=== PATIENT | female | born 1950 | race Caucasian/White ===

== ENCOUNTER 2020-11-18 16:35 | Inpatient (IN) | payer MEDICARE, OTHER ==
[~2020-11-18] VITALS: Ht 175.3 cm; Wt 72.6 kg
--- NOTE | 2020-11-18 16:40 | NUR ---
Dr Puente at the bedside for MSE. Pt's stated staying w/ Pt during ER visit.
[2020-11-18 16:52] LABS: *BILIRUBIN,URIN NEGATIVE (NEGATIVE); *BLOOD, URINE NEGATIVE (NEGATIVE); *CLARITY,URINE CLEAR (CLEAR); *COLOR,URINE YELLOW (YELLOW); *KETONES,URINE NEGATIVE (NEGATIVE); *UROBILINOGEN,URINE 0.2 E.U./dl (NORMAL); LEUKOCYTE ESTERASE ,URINE NEGATIVE (NEGATIVE); NITRITE, URINE NEGATIVE (NEGATIVE); UGLUCOSE NEGATIVE (NEGATIVE)
[2020-11-18 17:03] LABS: *AMPHETAMINE, URINE NEGATIVE (NEGATIVE); *CANNABINOID, URINE NEGATIVE (NEGATIVE); *COCCAINE, URINE NEGATIVE (NEGATIVE); *OPIATE, URINE NEGATIVE (NEGATIVE); *PHENCYCLIDINE SCREEN,URINE NEGATIVE (NEGATIVE)
[2020-11-18 17:04] LABS: HEMATOCRIT 45.8 % (31.2-41.9); MEAN CORPUSCULAR HEMOGLOBIN 31.2 uug (24.7-32.8); MEAN CORPUSCULAR VOLUME 90.1 fL (75.5-95.3); PLATELET COUNT (AUTO) 379 K/uL (179-408)
[2020-11-18 17:10] LABS: CARBON DIOXIDE 24 mmol/L (21-32); CHLORIDE 102 mmol/L (98-107); CREATININE 0.7 mg/dL (0.6-1.3); GLUCOSE 141 mg/dL (74-106); UREA NITROGEN, BLOOD 15 mg/dL (7-18)
[2020-11-18] MEDS ORDERED: VITA1CAP PO (17:10)
[2020-11-18] MEDS ORDERED: MONT10TA22 PO (17:10)
[2020-11-18] MEDS ORDERED: MULT-594 PO (17:10)
[2020-11-18] MEDS ORDERED: LEVO75TA7 PO (17:10)
[2020-11-18] MEDS ORDERED: CARV12.52 PO (17:10)
[2020-11-18] MEDS ORDERED: ALPR0.5T PO ×2 (17:10→17:11)
[2020-11-18] MEDS ORDERED: METF-440 PO (17:10)
--- NOTE | 2020-11-18 17:10 | NUR ---
Spoke to Pt's DIGITAL PROJECT COORDINATOR(Sergio) per Pt's request. Per Sergio, she admitted to have suecidal thoughts.
--- NOTE | 2020-11-18 17:10 | NUR ---
Relay pt's suecidal info to Dr Puente.
[2020-11-18] MEDS ORDERED: VITA400T9 PO (17:11)
[2020-11-18] MEDS ORDERED: MELA10CA PO (17:11)
[2020-11-18] MEDS ORDERED: ASCO500C18 PO (17:11)
[2020-11-18] MEDS ORDERED: PRAV20TA4 PO (17:11)
[2020-11-18] MEDS ORDERED: ESCI5TAB PO (17:11)
[2020-11-18] MEDS ORDERED: CALC-953 PO (17:11)
[2020-11-18] MEDS ORDERED: LETR2.5T PO (17:11)
[2020-11-18] MEDS ORDERED: ACET-2605 PO (17:11)
[2020-11-18] MEDS ORDERED: VERA240C2 PO (17:11)
[2020-11-18] MEDS ORDERED: LAMO25TA10 PO (17:11)
[2020-11-18 17:12] LABS: ETHANOL < 3 MG/DL (0-0)
[2020-11-18 17:16] LABS: ALANINE AMINOTRANSFERASE 27 U/L (14-59); ALKALINE PHOSPHATASE 52 U/L (50-136); ASPARTATE AMINOTRANSFERASE 14 U/L (15-37); BILIRUBIN,DIRECT 0.1 mg/dL (0.0-0.2); BILIRUBIN,TOTAL 0.5 mg/dL (0.2-1.0); TOTAL PROTEIN, SERUM 7.3 g/dL (6.4-8.2)
[2020-11-18 17:18] LABS: ACETAMINOPHEN < 2.0 ug/mL (10-30)
--- NOTE | 2020-11-18 17:20 | NUR ---
pt is medically cleared by Dr Puente. Placed a call to Shante Kingsley RN, PET, ETA 1 hour.
--- NOTE | 2020-11-18 18:01 | NUR ---
Pt is resting in bed, at the bedside.
--- NOTE | 2020-11-18 18:10 | NUR ---
Dinner tray provided, pt ate 100% of tray. in the room w/ Pt.
--- NOTE | 2020-11-18 21:02 | NUR ---
TRANSFERED TO [facility] VIA [facility].
[2020-11-18] MEDS ORDERED: MAGNESIUM HYDROXIDE 30 ML LIQUID UDC PO PRN (21:30)
[2020-11-18] MEDS ORDERED: MAG HYDROX/AL HYDROX/SIMETH 30 ML LIQUID UDC PO PRN (21:30)
[2020-11-18] MEDS ORDERED: LORAZEPAM 1 MG TABLET PO PRN (21:30)
[2020-11-18] MEDS ORDERED: BLOOD SUGAR DIAGNOSTIC 1 EACH STRIP VI ONE (21:30)
[2020-11-18] MEDS ORDERED: TEMAZEPAM 7.5 MG CAPSULE PO PRN (21:30)
[2020-11-18 22:18] VITALS: BP 150/99
[2020-11-19 07:30] VITALS: BP 160/63
[2020-11-19 07:54] LABS: BILIRUBIN,TOTAL 0.6 mg/dL (0.2-1.0); CREATININE 0.7 mg/dL (0.6-1.3); POTASSIUM 3.6 mmol/L (3.5-5.1); TOTAL PROTEIN, SERUM 6.6 g/dL (6.4-8.2)
--- NOTE | 2020-11-19 12:24 | NUR ---
LUZ Initial Discharge Plan: Patient resides at [address] [place] [address] with her James Tyaskin ([phone]). Patient will return home upon discharge. LUZ contacted patients [place] to discuss treatment and discharge plan and left a voicemail. LUZ will work with patient, family and MD to form a safe and proper discharge.
--- NOTE | 2020-11-19 12:24 | NUR ---
LUZ Family Contact: LUZ contacted patients [place] to discuss treatment and discharge plan and left a voicemail.
--- NOTE | 2020-11-19 12:29 | NUR ---
FIREARMS REPORT: Goldsmith Apprentice completed and submitted a [employer] firearms report for 5150 grave disability certification. A copy of report has been placed in patient chart.
--- NOTE | 2020-11-19 13:05 | NUR ---
LUZ Family Contact: LUZ received a call from patient's daughter Niki ([phone]) who stated she is the secondary DPOA and patient's [place] ([phone]) is the primary DPOA. Niki will send this SW documents. LUZ discussed treatment and discharge plan. Patient will return home once stable and family will pick patient up.
[2020-11-19] MEDS ORDERED: CARVEDILOL 12.5 MG TABLET PO ONE (13:15)
[2020-11-19] MEDS ORDERED: METFORMIN HCL 850 MG TABLET PO ONE (13:15)
[2020-11-19] MEDS ORDERED: METFORMIN HCL 500 MG TABLET PO ONE (13:15)
[2020-11-19] MEDS: ESCITALOPRAM OXALATE 10 MG TABLET PO SCH (13:19)
[2020-11-19] MEDS: LAMOTRIGINE 25 MG TABLET PO SCH (13:25)
--- NOTE | 2020-11-19 15:28 | NUR ---
UR NOTE: Per SEBASTIAN intake: Auth# [id number] obtained from [facility] [employer] PPO [phone] 3 days approved from 11/18/2020 to 11/20/2020 with review due on . No patient case coordinator assigned at this time. Once assigned [facility] will reach out to [place] Java Web Application Developer. Michael Godfrey can use same number to f/up [phone] Dept.
[2020-11-19 16:00] VITALS: BP 172/75
[2020-11-19] MEDS: METFORMIN HCL 500 MG TABLET PO SCH (17:31)
[2020-11-19] MEDS: CARVEDILOL 12.5 MG TABLET PO SCH (17:32)
[2020-11-19 19:03] VITALS: BP 152/62
[2020-11-19] MEDS: MIRTAZAPINE 15 MG TABLET PO SCH (20:30)
[2020-11-19] MEDS: ATORVASTATIN 10 MG TABLET PO SCH (20:30)
[2020-11-19] MEDS ORDERED: ACETAMINOPHEN ES 500 MG TABLET PO SCH (21:00)
[2020-11-19 21:05] VITALS: BP 161/50
[2020-11-19 21:47] VITALS: BP 150/86
[2020-11-19] MEDS: ACETAMINOPHEN 325 MG TABLET PO PRN (22:19)
[2020-11-20] MEDS: ALPRAZOLAM 0.5 MG TABLET PO PRN ×2 (00:05→22:52)
[2020-11-20] MEDS: LEVOTHYROXINE SODIUM 75 MCG TABLET PO SCH (06:40)
[2020-11-20 07:30] VITALS: BP 132/93
[2020-11-20] MEDS: ASCORBIC ACID 500 MG TABLET PO SCH (08:21)
[2020-11-20] MEDS: MULTIVITAMINS,THERAPEUTIC TABLET PO SCH (08:21)
[2020-11-20] MEDS: ALPRAZOLAM 0.5 MG TABLET PO SCH (08:21)
[2020-11-20] MEDS: METFORMIN HCL 500 MG TABLET PO SCH ×2 (08:21→17:01)
[2020-11-20] MEDS: CALCIUM CARB/VITAMIN D 500MG-200UNITS TABLET PO SCH (08:21)
[2020-11-20] MEDS: CARVEDILOL 12.5 MG TABLET PO SCH ×2 (08:23→17:02)
[2020-11-20] MEDS: VITAMIN B COMPLEX 1 TABLET PO SCH (08:23)
[2020-11-20] MEDS: LAMOTRIGINE 25 MG TABLET PO SCH (08:23)
[2020-11-20] MEDS: MONTELUKAST SODIUM 10 MG TABLET PO SCH (08:23)
[2020-11-20] MEDS: VITAMIN E 400 UNITS CAPSULE PO SCH (08:23)
[2020-11-20] MEDS: VERAPAMIL SR 120 MG TABLET.SA PO SCH (08:25)
[2020-11-20] MEDS ORDERED: MELATONIN PO SCH (09:00)
[2020-11-20] MEDS ORDERED: Medication Not On Formulary EA (Pravastatin Sodium 1 TAB) PO SCH (09:00)
--- NOTE | 2020-11-20 09:00 | NUR ---
received patient in her room sitting in her bed. she is noted a/o x 3, anxious and fixed on having a bladder infection. Patient is also noted hyperverbal, and attention seeker. She denied SI/HI//AH she is able to verbally CFS. she was also asked to collect urine to r/o UTI. patient agreed. V/S are stable. she is reassured for her safety. safety and fall precaution in place. will continue to monitor.
--- NOTE | 2020-11-20 09:12 | NUR ---
LUZ UR NOTE: Auth# [id number] obtained from [facility] [employer] from Sandra pillowcase folder ([phone]) who stated pt is authorized until 11/26 with concurrent review due on 11/26. LZU requested confirmation to be faxed Sandra stated she will fax to this SW.
[2020-11-20 09:52] LABS: *BILIRUBIN,URIN NEGATIVE (NEGATIVE); *BLOOD, URINE NEGATIVE (NEGATIVE); *CLARITY,URINE CLEAR (CLEAR); *COLOR,URINE YELLOW (YELLOW); *KETONES,URINE NEGATIVE (NEGATIVE); *UROBILINOGEN,URINE 0.2 E.U./dl (NORMAL); LEUKOCYTE ESTERASE ,URINE TRACE (NEGATIVE); NITRITE, URINE NEGATIVE (NEGATIVE); UGLUCOSE NEGATIVE (NEGATIVE)
--- NOTE | 2020-11-20 10:00 | NUR ---
urine was sent out for Urinalysis. will continue to monitor.
[2020-11-20 13:10] LABS: BACTERIA,URINE FEW /HPF (NONE SEEN); MUCUS,URINE FEW /LPF (0-FEW); RBC,URINE 0-3 /HPF (0-3); SQUAMOUS EPITHELIAL CELL,UR FEW /HPF (NONE SEEN); URINE AMORPHOUS PHOSPHATES FEW /HPF
[2020-11-20] MEDS: ESCITALOPRAM OXALATE 10 MG TABLET PO SCH (13:20)
--- NOTE | 2020-11-20 14:45 | NUR ---
Received report from Jose Antonio Marin. All questions, concerns, and comments addressed. Assumed care of patient.
[2020-11-20 15:53] VITALS: BP 153/71
[2020-11-20] MEDS: LETROZOLE 2.5MG TAB PO SCH (16:15)
--- NOTE | 2020-11-20 19:07 | NUR ---
Patient endorsed 2 episodes of loose stools today that were softly formed and brown, along with gas and abdominal pain. patient denies bleeding in the stool. Evy Bergeron NP notified and orders received for Lactinex PO TID. Orders noted and carried out. patient provided with education about medication. patient instructed to inform staff if bowl movements become more painful or become diarrhea.
[2020-11-20 19:57] VITALS: BP 135/67
[2020-11-20] MEDS: ATORVASTATIN 10 MG TABLET PO SCH (20:23)
[2020-11-20] MEDS: ACIDOPHILUS/BULGARICUS CHEW TAB PO SCH (20:26)
[2020-11-20] MEDS: MIRTAZAPINE 15 MG TABLET PO SCH (20:26)
[2020-11-20] MEDS: ACETAMINOPHEN 325 MG TABLET PO PRN (22:53)
[2020-11-21] MEDS: LEVOTHYROXINE SODIUM 75 MCG TABLET PO SCH (06:29)
--- NOTE | 2020-11-21 07:00 | NUR ---
Admit Note: Patient arrived to MHU with ER staff. Patient was placed on a 5150 for Danger to self after a clinician in ER assessed her. Patient was brought in by because he observed a major increase in depression and anxiety. Patient reportedly witnessed his son of a heart attack. Patient declined to sign admission paper work. Plan of care initiated, safety precautions in place. Patient right's handbook provided.
[2020-11-21 07:30] VITALS: BP 155/97
[2020-11-21] MEDS: ALPRAZOLAM 0.5 MG TABLET PO SCH (08:26)
[2020-11-21] MEDS: METFORMIN HCL 500 MG TABLET PO SCH ×2 (08:29→18:03)
[2020-11-21] MEDS: CARVEDILOL 12.5 MG TABLET PO SCH ×2 (08:30→18:04)
[2020-11-21] MEDS: CALCIUM CARB/VITAMIN D 500MG-200UNITS TABLET PO SCH (08:31)
[2020-11-21] MEDS: ASCORBIC ACID 500 MG TABLET PO SCH (08:31)
[2020-11-21] MEDS: ACIDOPHILUS/BULGARICUS CHEW TAB PO SCH ×3 (08:31→18:04)
[2020-11-21] MEDS: VITAMIN E 400 UNITS CAPSULE PO SCH (08:31)
[2020-11-21] MEDS: MULTIVITAMINS,THERAPEUTIC TABLET PO SCH (08:31)
[2020-11-21] MEDS: VERAPAMIL SR 120 MG TABLET.SA PO SCH (08:33)
[2020-11-21] MEDS: LETROZOLE 2.5MG TAB PO SCH (08:35)
[2020-11-21] MEDS: MONTELUKAST SODIUM 10 MG TABLET PO SCH (08:35)
[2020-11-21] MEDS: VITAMIN B COMPLEX 1 TABLET PO SCH (08:36)
--- NOTE | 2020-11-21 09:05 | NUR ---
LUZ Family Contact: LUZ spoke with patient's daughter Niki ([phone]) and discussed updated treatment and discharge plan.
--- NOTE | 2020-11-21 10:28 | NUR ---
APS REPORT: Report (Intake ID [id number]) was successfully submitted on 11/21/2020 at 10:27 AM.
--- NOTE | 2020-11-21 10:29 | NUR ---
LUZ Family Contact: LUZ received an email from patient's daughter Niki ([phone]) with photos indicating a hoarding situation in the patient's home. This evidence required an APS report which this SW made. Niki requested patient to be placed in a SNF after the hospitalization. This SW discussed that the patient's insurance does not cover SNF placement. niki was insisting that the patient cannot return home with their home as such. LUZ provided alternative options such as Board and Care which would be private pay by patient or family. Niki stated that is not an option at this time and that she will "find other providers to recommend a SNF is the hospital cannot do it". LUZ educated Niki on SNF and insurance coverages. LUZ informed that patient would need fpc care and it would need to be privately paid for. Niki stated that she will speak to patient's primary physician for assistance and will "be lodging a complaint with the insurance company as well as engaging her current out-patient medical team to address this issue". LUZ discussed this case with Kimmie Lui LCSW.
[2020-11-21 10:34] VITALS: BP 155/97
[2020-11-21] MEDS: ACETAMINOPHEN 325 MG TABLET PO PRN ×2 (15:10→22:36)
[2020-11-21] MEDS: ESCITALOPRAM OXALATE 10 MG TABLET PO SCH (15:10)
[2020-11-21 16:57] VITALS: BP 135/79
[2020-11-21 20:02] VITALS: BP 145/77
[2020-11-21] MEDS: ATORVASTATIN 10 MG TABLET PO SCH (21:13)
[2020-11-21] MEDS: MIRTAZAPINE 15 MG TABLET PO SCH (21:13)
[2020-11-21] MEDS: LAMOTRIGINE 25 MG TABLET PO SCH (21:14)
--- NOTE | 2020-11-21 22:00 | NUR ---
received to care, sitting up in bed, pleasant upon approach. needy at times, but easy to redirect. compliant with medications. assisted with PM care. currently lying in bed, with eyes open. no distress noted.
[2020-11-21] MEDS: ALPRAZOLAM 0.5 MG TABLET PO PRN (22:36)
--- NOTE | 2020-11-21 22:36 | NUR ---
PRN xanax given for anxiety. PRN tylenol given for neck pain 08/28. will continue to monitor closely.
--- NOTE | 2020-11-22 00:15 | NUR ---
appears to be asleep. no distress noted
--- NOTE | 2020-11-22 06:23 | NUR ---
slept 6.75 hours, total. continues to sleep. no distress noted.
[2020-11-22] MEDS: LEVOTHYROXINE SODIUM 75 MCG TABLET PO SCH (06:56)
[2020-11-22 08:00] VITALS: BP 167/83
[2020-11-22] MEDS: ASCORBIC ACID 500 MG TABLET PO SCH (08:34)
[2020-11-22] MEDS: VITAMIN B COMPLEX 1 TABLET PO SCH (08:34)
[2020-11-22] MEDS: CALCIUM CARB/VITAMIN D 500MG-200UNITS TABLET PO SCH (08:34)
[2020-11-22] MEDS: ALPRAZOLAM 0.5 MG TABLET PO SCH (08:34)
[2020-11-22] MEDS: LETROZOLE 2.5MG TAB PO SCH (08:34)
[2020-11-22] MEDS: ACIDOPHILUS/BULGARICUS CHEW TAB PO SCH ×3 (08:34→17:01)
[2020-11-22] MEDS: MONTELUKAST SODIUM 10 MG TABLET PO SCH (08:34)
[2020-11-22] MEDS: VITAMIN E 400 UNITS CAPSULE PO SCH (08:34)
[2020-11-22] MEDS: MULTIVITAMINS,THERAPEUTIC TABLET PO SCH (08:34)
[2020-11-22] MEDS: METFORMIN HCL 500 MG TABLET PO SCH ×2 (08:35→17:01)
[2020-11-22] MEDS: CARVEDILOL 12.5 MG TABLET PO SCH ×2 (08:35→17:02)
[2020-11-22] MEDS: VERAPAMIL SR 120 MG TABLET.SA PO SCH (08:36)
[2020-11-22] MEDS: ESCITALOPRAM OXALATE 10 MG TABLET PO SCH (12:03)
[2020-11-22 16:00] VITALS: BP 139/73
[2020-11-22] MEDS: NITROFURANTOIN/NITROFURAN MAC 100 MG CAPSULE PO SCH ×2 (17:22→20:26)
[2020-11-22 19:41] VITALS: BP 133/74
[2020-11-22] MEDS: LAMOTRIGINE 25 MG TABLET PO SCH (20:26)
[2020-11-22] MEDS: MIRTAZAPINE 15 MG TABLET PO SCH (20:26)
[2020-11-22] MEDS: ATORVASTATIN 10 MG TABLET PO SCH (20:26)
[2020-11-22] MEDS: ACETAMINOPHEN 325 MG TABLET PO PRN (21:33)
[2020-11-22] MEDS: ALPRAZOLAM 0.5 MG TABLET PO PRN (21:38)
[2020-11-23] MEDS: LEVOTHYROXINE SODIUM 75 MCG TABLET PO SCH (06:45)
[2020-11-23] MEDS: ACETAMINOPHEN 325 MG TABLET PO PRN ×3 (06:55→22:09)
[2020-11-23 08:19] VITALS: BP 121/61
[2020-11-23] MEDS: CALCIUM CARB/VITAMIN D 500MG-200UNITS TABLET PO SCH (08:29)
[2020-11-23] MEDS: VITAMIN B COMPLEX 1 TABLET PO SCH (08:29)
[2020-11-23] MEDS: ACIDOPHILUS/BULGARICUS CHEW TAB PO SCH ×3 (08:29→16:37)
[2020-11-23] MEDS: MONTELUKAST SODIUM 10 MG TABLET PO SCH (08:30)
[2020-11-23] MEDS: MULTIVITAMINS,THERAPEUTIC TABLET PO SCH (08:30)
[2020-11-23] MEDS: NITROFURANTOIN/NITROFURAN MAC 100 MG CAPSULE PO SCH ×2 (08:30→20:30)
[2020-11-23] MEDS: ASCORBIC ACID 500 MG TABLET PO SCH (08:30)
[2020-11-23] MEDS: METFORMIN HCL 500 MG TABLET PO SCH ×2 (08:30→17:02)
[2020-11-23] MEDS: CARVEDILOL 12.5 MG TABLET PO SCH ×2 (08:31→17:02)
[2020-11-23] MEDS: VERAPAMIL SR 120 MG TABLET.SA PO SCH (08:32)
[2020-11-23] MEDS: VITAMIN E 400 UNITS CAPSULE PO SCH (08:32)
[2020-11-23] MEDS: LETROZOLE 2.5MG TAB PO SCH (08:32)
[2020-11-23] MEDS ORDERED: ALPRAZOLAM 0.5 MG TABLET PO SCH (09:00)
[2020-11-23] MEDS: ESCITALOPRAM OXALATE 10 MG TABLET PO SCH (13:21)
[2020-11-23 15:45] VITALS: BP 131/72
[2020-11-23 19:56] VITALS: BP 126/66
[2020-11-23] MEDS: LAMOTRIGINE 25 MG TABLET PO SCH (20:30)
[2020-11-23] MEDS: ATORVASTATIN 10 MG TABLET PO SCH (20:30)
[2020-11-23] MEDS: MIRTAZAPINE 15 MG TABLET PO SCH (20:30)
[2020-11-23] MEDS: ALPRAZOLAM 0.25 MG TABLET PO PRN (22:30)
[2020-11-24] MEDS: LEVOTHYROXINE SODIUM 75 MCG TABLET PO SCH (06:35)
--- NOTE | 2020-11-24 06:49 | NUR ---
NURSING NOTE:PT SLEPT FOR 6.30 HRS.SOMATIC COMPLAINTS ABOUT DIDN'T SLEEP GOOD,DIZZINESS AND FEELS WEAK HARDLY WALK.STAFF ADVISED TO GET UP SLOWLY,CALL THEN WAIT FOR STAFF ASSIST AND WALKING WITH FWW.WILL ENDORSE TO DAY SHIFT TO CONTINUE TO MONITOR.
[2020-11-24 07:57] VITALS: BP 125/68
[2020-11-24] MEDS: CALCIUM CARB/VITAMIN D 500MG-200UNITS TABLET PO SCH (08:22)
[2020-11-24] MEDS: VITAMIN B COMPLEX 1 TABLET PO SCH (08:22)
[2020-11-24] MEDS: NITROFURANTOIN/NITROFURAN MAC 100 MG CAPSULE PO SCH ×2 (08:22→20:27)
[2020-11-24] MEDS: MULTIVITAMINS,THERAPEUTIC TABLET PO SCH (08:22)
[2020-11-24] MEDS: ACIDOPHILUS/BULGARICUS CHEW TAB PO SCH ×3 (08:22→16:28)
[2020-11-24] MEDS: MONTELUKAST SODIUM 10 MG TABLET PO SCH (08:22)
[2020-11-24] MEDS: METFORMIN HCL 500 MG TABLET PO SCH ×2 (08:22→17:01)
[2020-11-24] MEDS: ALPRAZOLAM 0.25 MG TABLET PO PRN ×2 (08:22→21:58)
[2020-11-24] MEDS: CARVEDILOL 12.5 MG TABLET PO SCH ×2 (08:23→17:02)
[2020-11-24] MEDS: ASCORBIC ACID 500 MG TABLET PO SCH (08:23)
[2020-11-24] MEDS: VERAPAMIL SR 120 MG TABLET.SA PO SCH (08:24)
[2020-11-24] MEDS: LETROZOLE 2.5MG TAB PO SCH (08:25)
[2020-11-24] MEDS: VITAMIN E 400 UNITS CAPSULE PO SCH (08:25)
[2020-11-24] MEDS ORDERED: ALPRAZOLAM 0.5 MG TABLET PO PRN (12:14)
[2020-11-24] MEDS: ESCITALOPRAM OXALATE 10 MG TABLET PO SCH (12:28)
[2020-11-24] MEDS: ACETAMINOPHEN 325 MG TABLET PO PRN ×2 (15:52→21:59)
[2020-11-24 15:58] VITALS: BP 136/70
[2020-11-24 20:04] VITALS: BP 132/64
[2020-11-24] MEDS: ATORVASTATIN 10 MG TABLET PO SCH (20:27)
[2020-11-24] MEDS: LAMOTRIGINE 25 MG TABLET PO SCH (20:27)
[2020-11-24] MEDS: MIRTAZAPINE 15 MG TABLET PO SCH (20:28)
[2020-11-25] MEDS: LEVOTHYROXINE SODIUM 75 MCG TABLET PO SCH (06:45)
[2020-11-25] MEDS: ACETAMINOPHEN 325 MG TABLET PO PRN ×2 (06:45→22:17)
[2020-11-25 08:00] VITALS: BP 114/72
[2020-11-25] MEDS: ASCORBIC ACID 500 MG TABLET PO SCH (08:49)
[2020-11-25] MEDS: MULTIVITAMINS,THERAPEUTIC TABLET PO SCH (08:49)
[2020-11-25] MEDS: VITAMIN E 400 UNITS CAPSULE PO SCH (08:49)
[2020-11-25] MEDS: CALCIUM CARB/VITAMIN D 500MG-200UNITS TABLET PO SCH (08:49)
[2020-11-25] MEDS: METFORMIN HCL 500 MG TABLET PO SCH ×2 (08:49→17:26)
[2020-11-25] MEDS: VITAMIN B COMPLEX 1 TABLET PO SCH (08:49)
[2020-11-25] MEDS: NITROFURANTOIN/NITROFURAN MAC 100 MG CAPSULE PO SCH ×2 (08:49→20:27)
[2020-11-25] MEDS: ACIDOPHILUS/BULGARICUS CHEW TAB PO SCH ×3 (08:49→16:06)
[2020-11-25] MEDS: CARVEDILOL 12.5 MG TABLET PO SCH ×2 (08:50→17:26)
[2020-11-25] MEDS: LETROZOLE 2.5MG TAB PO SCH (08:51)
[2020-11-25] MEDS: VERAPAMIL SR 120 MG TABLET.SA PO SCH (08:51)
--- NOTE | 2020-11-25 09:00 | NUR ---
LUZ UR NOTE: Auth# [id number]. LUZ contacted Sandra correctional casework specialist ([phone]) and left a voicemail stating to if she is able to help with placement.
--- NOTE | 2020-11-25 09:09 | NUR ---
UR Note: LUZ received a call from Sandra showcase maker ([phone]) who stated care urban and regional planner Gabriela ([phone]) and this SW contacted Gabriela and left a voicemail in regards to finding a placement.
--- NOTE | 2020-11-25 09:49 | NUR ---
SW Coordination: Insurance Gabriela ([phone]) sent placement options: [facility] and SW spoke with Naa who stated that they do not take pt's with [employer]. SW spoke with Stevie from [facility] who stated they will review but do not guarantee. SW spoke with [facility] Deric who stated that they do not take [employer].
[2020-11-25] MEDS: ESCITALOPRAM OXALATE 10 MG TABLET PO SCH (12:08)
--- NOTE | 2020-11-25 12:26 | NUR ---
SW Coordination: Per families request pt faxed clinicals to: [facility] phone: [phone] Kitty Warner fax: [phone] [address] [facility] phone: [phone] Dejah fax: [phone] [address] [facility]
--- NOTE | 2020-11-25 14:34 | NUR ---
Court Hearing: Patient's court hearing was today for 5250 and patient's DPOA daughter Niki was notified ([phone]) and was present. Patient's 5250 was upheld for GD.
--- NOTE | 2020-11-25 14:37 | NUR ---
SW SNF Contact: SW contacted [facility] phone: [phone], and spoke with delia Tang ([phone]) who stated that she would inform this SW if they will accept pt or not and have to get authorization. LUZ contacted Dejah from [facility] and they stated that they are unsure if they will accept pt due to pt being in a psych unit and being unable to take care of pt at the facility. They requested more progress notes. SW faxed progress notes.
[2020-11-25 16:07] VITALS: BP 142/75
--- NOTE | 2020-11-25 17:05 | NUR ---
Family Contact Spoke with patient's daughter, Niki ) in the presence of Dalia, social service agency director. Niki said she had spoken to two contracted [employer] facilities and wanted information faxed there. She was angry and felt " no one was trying to help" her with her mother. Dalia agreed to fax to facilities for for her mother. This card writer hand and Dalia educated the daughter that she may need to pay a board and care if there was no accepting facility for patient.
[2020-11-25] MEDS: MONTELUKAST SODIUM 10 MG TABLET PO SCH (17:26)
[2020-11-25 20:06] VITALS: BP_SYST 147; BP_SYST 149; BP_DIAS 73; BP_DIAS 80
[2020-11-25] MEDS: MIRTAZAPINE 15 MG TABLET PO SCH (20:27)
[2020-11-25] MEDS: LAMOTRIGINE 25 MG TABLET PO SCH (20:27)
[2020-11-25] MEDS: ATORVASTATIN 10 MG TABLET PO SCH (20:27)
[2020-11-25] MEDS: ALPRAZOLAM 0.25 MG TABLET PO PRN (22:17)
[2020-11-26] MEDS: LEVOTHYROXINE SODIUM 125 MCG TABLET PO SCH (06:47)
[2020-11-26] MEDS ORDERED: LEVOTHYROXINE SODIUM 75 MCG TABLET PO SCH ×2 (07:00)
[2020-11-26 07:30] VITALS: BP 153/87
[2020-11-26 08:30] VITALS: BP 153/87
--- NOTE | 2020-11-26 09:12 | NUR ---
SW SNF Contact: LUZ followed up with [facility] phone: [phone] and spoke with flo Pond who stated they cannot accept the patient due to her 5150 hold.
--- NOTE | 2020-11-26 09:15 | NUR ---
LUZ SNF Contact: SW contacted [facility] phone: [phone], and spoke with delia Tang ([phone]) who stated that they cannot accept the patient due to psych admission.
[2020-11-26] MEDS: NITROFURANTOIN/NITROFURAN MAC 100 MG CAPSULE PO SCH ×2 (09:26→20:42)
[2020-11-26] MEDS: CALCIUM CARB/VITAMIN D 500MG-200UNITS TABLET PO SCH (09:26)
[2020-11-26] MEDS: CARVEDILOL 12.5 MG TABLET PO SCH ×2 (09:26→18:20)
[2020-11-26] MEDS: METFORMIN HCL 500 MG TABLET PO SCH ×2 (09:26→18:20)
[2020-11-26] MEDS: MULTIVITAMINS,THERAPEUTIC TABLET PO SCH (09:26)
[2020-11-26] MEDS: ASCORBIC ACID 500 MG TABLET PO SCH (09:27)
[2020-11-26] MEDS: VITAMIN E 400 UNITS CAPSULE PO SCH (09:27)
[2020-11-26] MEDS: VERAPAMIL SR 120 MG TABLET.SA PO SCH (09:27)
[2020-11-26] MEDS: LETROZOLE 2.5MG TAB PO SCH (09:28)
[2020-11-26] MEDS: ACIDOPHILUS/BULGARICUS CHEW TAB PO SCH ×3 (09:28→18:19)
[2020-11-26] MEDS: VITAMIN B COMPLEX 1 TABLET PO SCH (09:28)
--- NOTE | 2020-11-26 10:30 | NUR ---
LUZ Family Contact: LUZ spoke with patient's daughter, Niki ([phone]) and informed the two facilities [facility] declined patient for acceptance. Niki requested the reasoning and facilities stated due to psych admissions. Niki was demanding that she cannot take the patient home due to hoarding situation. LUZ discussed again that this has been an ongoing issue for a long time and she has the DPOA was aware. LUZ reminded again that an APS report was made due to the hoarding. LUZ offered Niki board and care placement as the only other option from SNF. She seems hesitant as it is out of pay. LUZ informed that today is the last covered day from her insurance. LUZ will contact coordinator for board and care and provide niki options today
--- NOTE | 2020-11-26 10:40 | NUR ---
LUZ Board and Care Contact: LUZ contacted Destini art coordinator ([phone]) for board and care placement. LUZ provided [facility] contact information and Destini will be communication for placement options with [facility].
--- NOTE | 2020-11-26 10:56 | NUR ---
LUZ UR NOTE: Auth# [id number] LUZ contacted [facility] [employer] from Sandra welfare case worker ([phone]) and left a voicemail to schedule live clinical review today per her voicemail this morning. Waiting for a call back.
--- NOTE | 2020-11-26 11:55 | NUR ---
LUZ SNF Contact: LUZ spoke with Stevie from [facility] who stated they cannot accept the patient due to insurance.
[2020-11-26] MEDS: ESCITALOPRAM OXALATE 10 MG TABLET PO SCH (13:10)
[2020-11-26] MEDS: ACETAMINOPHEN 325 MG TABLET PO PRN ×2 (13:18→22:38)
--- NOTE | 2020-11-26 14:52 | NUR ---
LUZ ARU Referral: Per patient's daughter Niki's request, Cortes social work case manager from ARU reviewed if patient would qualify for ARU. Cortes stated "She does not qualify for ARU. No qualifying ARU diagnosis and her functional levels are almost back to baseline.". LUZ informed Niki of this information and she is aware.
--- NOTE | 2020-11-26 14:58 | NUR ---
LUZ Coordination of Care: Darwin communication coordinator provided the following board and care placements for the patient. LUZ emailed the information to Niki ([phone]) and left her a voicemail informing that the email has been sent to her. [employer] [facility], [address] [place] [address] [facility] [address] [place] [address] [facility] Group Fitness Manager ([phone])
--- NOTE | 2020-11-26 15:00 | NUR ---
LUZ UR NOTE: Auth# [id number] LUZ contacted Howard [employer] from Sandra bottle caser ([phone]) and left another voicemail to conduct review today. Waiting for a call back.
--- NOTE | 2020-11-26 15:23 | NUR ---
LUZ UR NOTE: Auth# [id number] LUZ contacted Howard [employer] from Sandra upper caser ([phone]) and left another voicemail to conduct review today. Waiting for a call back.
--- NOTE | 2020-11-26 15:59 | NUR ---
SW Individual Intervention: Radio Communications Mechanician met with patient for individual therapy. signal worker helper provided brief counseling and assessed patients presenting problem depression. Patient expressed that it was difficult to sleep and constantly feels tired. Patient stated that my depression is getting a little better. Patient expressed that if she could sleep more, then her mood might improve. Patient feels the need to express more concerns with her doctor. signal worker helper validated patients feelings and empathized with her regarding her concerns. Patient was appreciative and thanked the pediatric social worker for listening to her. signal worker helper will continue to be available for patient for ongoing support.
[2020-11-26 16:38] VITALS: BP 165/73
[2020-11-26] MEDS: MONTELUKAST SODIUM 10 MG TABLET PO SCH (18:20)
[2020-11-26 20:42] VITALS: BP 149/74
[2020-11-26] MEDS: ATORVASTATIN 10 MG TABLET PO SCH (20:42)
[2020-11-26] MEDS: LAMOTRIGINE 25 MG TABLET PO SCH (20:43)
[2020-11-26] MEDS: MIRTAZAPINE 15 MG TABLET PO SCH (20:43)
[2020-11-26] MEDS: ALPRAZOLAM 0.25 MG TABLET PO PRN (22:38)
[2020-11-27] MEDS: LEVOTHYROXINE SODIUM 125 MCG TABLET PO SCH (06:21)
[2020-11-27 07:30] VITALS: BP 152/69
[2020-11-27] MEDS: VERAPAMIL SR 120 MG TABLET.SA PO SCH (09:00)
[2020-11-27] MEDS: ACIDOPHILUS/BULGARICUS CHEW TAB PO SCH ×3 (09:31→17:29)
[2020-11-27] MEDS: MULTIVITAMINS,THERAPEUTIC TABLET PO SCH (09:31)
[2020-11-27] MEDS: CALCIUM CARB/VITAMIN D 500MG-200UNITS TABLET PO SCH (09:31)
[2020-11-27] MEDS: CARVEDILOL 12.5 MG TABLET PO SCH ×2 (09:31→17:29)
[2020-11-27] MEDS: ASCORBIC ACID 500 MG TABLET PO SCH (09:31)
[2020-11-27] MEDS: METFORMIN HCL 500 MG TABLET PO SCH ×2 (09:31→17:28)
[2020-11-27] MEDS: LETROZOLE 2.5MG TAB PO SCH (09:31)
[2020-11-27] MEDS: VITAMIN E 400 UNITS CAPSULE PO SCH (09:32)
[2020-11-27] MEDS: VITAMIN B COMPLEX 1 TABLET PO SCH (09:32)
--- NOTE | 2020-11-27 09:34 | NUR ---
LUZ UR NOTE: Auth# [id number] LUZ received a call from Howard Villanueva from Sandra employment case manager ([phone]) stating that she will do the clinical review today at 1PM 11/27. LUZ called and left her a voicemail that 1PM works.
--- NOTE | 2020-11-27 11:43 | NUR ---
SW Family Contact: This SW received a call from daughter Niki ([phone]) and stated that she found a board and care called [facility] and would want this SW to coordinate.
--- NOTE | 2020-11-27 11:44 | NUR ---
Board and Care: This SW spoke with Al from [facility] ([phone]) and stated they will be accepting patient. Al stated they will require physician report which she will email to this SW. Al stated they will require PCR covid test and one rapid test. LUZ notified NAT Rowland to request PCR test today and rapid tomorrow morning 11/28. LUZ faxed chest-ray and medical records to Al.
--- NOTE | 2020-11-27 11:48 | NUR ---
PHARMACY NOTE: SCANNER NOT REGISTERING LOT#
--- NOTE | 2020-11-27 11:59 | NUR ---
LUZ Coordination of Care: Patient will be following up with her primary physician Dr. Sarabia, Maura [address] [place] [address] ([phone]) and has an appointment scheduled on December 09 at 11:45AM and will monitor patients psychotropic medications
--- NOTE | 2020-11-27 13:06 | NUR ---
LUZ UR NOTE: Auth# [id number] LUZ received a call from Howard Villanueva from Sandra director of casework department ([phone]) and provided clinicals and authorized patient's stay at the hospital 11/27/20 with dc on 11/28/20
[2020-11-27] MEDS: ESCITALOPRAM OXALATE 10 MG TABLET PO SCH (14:33)
[2020-11-27 15:29] VITALS: BP 151/73
[2020-11-27] MEDS: MONTELUKAST SODIUM 10 MG TABLET PO SCH (17:29)
--- NOTE | 2020-11-27 19:06 | NUR ---
RECEIVED PATIENT IN HER ROOM IN BED. SHE WAS NOTED AWAKE A/O X 3. SHE IS ABLE TO VERBALIZED FEELINGS. SHE IS NOTED HYPERVERBAL. SHE IS AWARE OF HER INCOMING DISCHARGED TO A B&C FACILITY. SHE IS NOTED SOMEWHAT PREOCCUPIED ABOUT THE FACILITY. PATIENT WAS REASSURED AND ALL HER QUESTION WERE ANSWERED. SHE IS REASSURED FOR HER SAFETY. SHE CONTINUE COMPLIANT WITH MEDICATION REGIMENT DIET AND PLAN OF CARE. SHE DENIED SI/HI/VH/AH. SHE IS ABLE TO CFS. CAME TO VISIT PATIENT. NOTED COOPERATIVE. V/S STABLE AT THIS TIME. SAFETY AND FALL PRECAUTION IN PLACE. WILL CONTINUE WITH FREQUENT HEAD CHECKS. PATIENT IS GIVEN PO FLUIDS AND SNACKS NEEDED. WILL [id number] TO MONITOR.
[2020-11-27 20:00] VITALS: BP 159/82
[2020-11-27] MEDS: ATORVASTATIN 10 MG TABLET PO SCH (20:22)
[2020-11-27] MEDS: MIRTAZAPINE 15 MG TABLET PO SCH (20:22)
[2020-11-27] MEDS: LAMOTRIGINE 25 MG TABLET PO SCH (20:23)
[2020-11-27] MEDS: ACETAMINOPHEN 325 MG TABLET PO PRN (22:34)
[2020-11-27] MEDS: ALPRAZOLAM 0.25 MG TABLET PO PRN (22:34)
[2020-11-28] MEDS: LEVOTHYROXINE SODIUM 125 MCG TABLET PO SCH (07:00)
[2020-11-28 07:30] VITALS: BP 138/72
--- NOTE | 2020-11-28 09:09 | NUR ---
Discharge Note: Patient will be discharged to [facility] [address] [place] [address]; ([phone]). Patients daughter LETI Prince ([phone]) will pick up truck driver pt at 2PM. Admin Galeta from [facility] will accept pt today. Pt is alert and oriented x3 and is happy to being to a facility. Patient denies suicidal or homicidal ideation. Pt denies visual/auditory hallucinations. Patient will be following up with her primary physician Dr. Sarabia, Maur[place] [address] [place] [address] ([phone]) and has an appointment scheduled on December 09 at 11:45AM and will monitor patients psychotropic medications. Patient presented with euthymic mood and congruent affect.
[2020-11-28] MEDS: VITAMIN B COMPLEX 1 TABLET PO SCH (09:12)
[2020-11-28] MEDS: METFORMIN HCL 500 MG TABLET PO SCH (09:12)
[2020-11-28] MEDS: CARVEDILOL 12.5 MG TABLET PO SCH (09:12)
[2020-11-28 09:13] VITALS: BP 138/72
[2020-11-28] MEDS: LETROZOLE 2.5MG TAB PO SCH (09:13)
[2020-11-28] MEDS: VERAPAMIL SR 120 MG TABLET.SA PO SCH (09:13)
[2020-11-28] MEDS: ACIDOPHILUS/BULGARICUS CHEW TAB PO SCH (09:13)
[2020-11-28] MEDS: CALCIUM CARB/VITAMIN D 500MG-200UNITS TABLET PO SCH (09:13)
[2020-11-28] MEDS: MULTIVITAMINS,THERAPEUTIC TABLET PO SCH (09:14)
[2020-11-28] MEDS: ASCORBIC ACID 500 MG TABLET PO SCH (09:14)
[2020-11-28] MEDS: VITAMIN E 400 UNITS CAPSULE PO SCH (09:14)
--- NOTE | 2020-11-28 11:42 | NUR ---
With discharge order to Board & Care. Prescription and DC instruction given to patient and , verbalized understanding. Prescription faxed to preferred pharmacy. Went home per wheelchair in fair condition, denies suicidal ideation and homicidal ideation.
--- NOTE | 2020-11-28 12:01 | NUR ---
Board and Care: This SW faxed Al from [facility] ( ) prescriptions, home health order, and physicians report.
--- NOTE | 2020-12-01 09:18 | NUR ---
APS REPORT: Thank you for submitting a Protective Services Report. Your report (Intake ID [id number]) was successfully submitted on 12/01/2020 at 9:18 AM.
== END 2020-11-28 11:50 | DRG 885 ==
LOC: ER 16:37 → GPS 20:46
PROVIDERS: ADMIT Psychiatry & Neurology Psychosomatic Medicine; ATTEND Nurse Practitioner Acute Care
DX: F33.0 Major depressive disorder, recurrent, mild (principal); F01.50 Vascular dementia, unspecified severity, without behavioral disturbance, psychotic disturbance, mood disturbance, and anxiety; B95.2 Enterococcus as the cause of diseases classified elsewhere; R45.851 Suicidal ideations; N39.0 Urinary tract infection, site not specified; F41.9 Anxiety disorder, unspecified; E03.9 Hypothyroidism, unspecified; E05.90 Thyrotoxicosis, unspecified without thyrotoxic crisis or storm; E11.9 Type 2 diabetes mellitus without complications; E78.5 Hyperlipidemia, unspecified; I10 Essential (primary) hypertension; J44.9 Chronic obstructive pulmonary disease, unspecified; F41.0 Panic disorder [episodic paroxysmal anxiety]; F43.10 Post-traumatic stress disorder, unspecified; Z20.822 Contact with and (suspected) exposure to COVID-19; Z79.84 Long term (current) use of oral hypoglycemic drugs
CPT/HCPCS: 36415; 71045; 84443; 85025; 87077; 87086; 93005; 97161; A4663; G0480; U0003